=== PATIENT | male | born 1975 | race African-American/Black ===

== ENCOUNTER 2021-12-02 13:36 | Emergency (ER) | payer BC ==
[~2021-12-02] VITALS: Ht 172.7 cm; Wt 90.0 kg
[2021-12-02] MEDS ORDERED: KETOROLAC 15MG/ML VIAL IM ONE (18:15)
[2021-12-02 20:32] LABS: CLARITY URINE CLEAR (CLEAR); COLOR URINE DARK YELLOW (YELLOW); HEMATOCRIT 45.3 % (42.0-52.0); KETONES URINE 3+ (NEGATIVE); LEUKOCYTE ESTERASE URINE NEGATIVE (NEGATIVE); MEAN CORPUSCULAR HEMOGLOBIN 29.4 pg (28.0-32.0); NITRITE URINE NEGATIVE (NEGATIVE); OCCULT BLOOD URINE NEGATIVE (NEGATIVE); PH URINE 5.5 (4.5-8.0); PLATELET 214 x1000/uL (130-400); PROTEIN URINE 1+ (NEGATIVE); RED BLOOD CELL COUNT 5.09 mill/uL (4.7-6.1); RED CELL DISTRIBUTION WIDTH 13.3 % (11.6-14.6); SPECIFIC GRAVITY URINE 1.026 (1.005-1.030)
[2021-12-02 20:38] LABS: CHLORIDE 102 mEq/L (98-107)
[2021-12-02] MEDS ORDERED: POTASSIUM CHLORIDE 20MEQ TABLET SR PO ONE (21:00)
[2021-12-02 21:22] VITALS: BP 112/65
== END 2021-12-02 21:22 | disposition home or self-care (01) ==
LOC: ER 13:54
DX: U07.1 COVID-19 (principal); R03.0 Elevated blood-pressure reading, without diagnosis of hypertension; S80.862A Insect bite (nonvenomous), left lower leg, initial encounter; S80.861A Insect bite (nonvenomous), right lower leg, initial encounter; W57.XXXA Bitten or stung by nonvenomous insect and other nonvenomous arthropods, initial encounter; Y93.89 Activity, other specified; Y92.018 Other place in single-family (private) house as the place of occurrence of the external cause
CPT/HCPCS: 36415; 80048; 81003; 85027; 87426; 96372; 99283; C9803; J1885